=== PATIENT | male | born 1945 | race Two or more races ===

== ENCOUNTER 2019-01-30 08:41 | Emergency (ER) | payer MEDICARE ==
[~2019-01-30] VITALS: Ht 175.3 cm; Wt 92.5 kg
--- NOTE | 2019-01-30 08:50 | NUR ---
PT BIB SELF C/O DIARRHEA, ABDOMINAL CRAMPING SINCE YESTERDAY 4 HRS S/P EATING PIE. PT IS AAOX4, NOT IN RESPIRATORY DISTRESS, HOOKED TO MONITOR, KEPT RESTED AND COMFORTABLE, WILL CONTINUE TO MONITOR.
--- NOTE | 2019-01-30 09:03 | NUR ---
SEEN AND EXAMINED BY .
--- NOTE | 2019-01-30 09:05 | NUR ---
IV LINE ESTABLISHED, BLOOD DRAWN AND SENT TO LAB.
[2019-01-30] MEDS ORDERED: ONDANSETRON HCL/PF 4 MG/2 ML VIAL ONE (09:07)
[2019-01-30] MEDS ORDERED: MORPHINE SULFATE INJ 2 MG/ML DISP.SYRIN ONE (09:08)
[2019-01-30 09:15] LABS: BASOPHILS # (AUTO) 0.1 /CMM (0.0-0.2); BASOPHILS % (AUTO) 1.3 % (0.0-2.0); EOSINOPHILS % (AUTO) 6.7 % (0.0-6.0); HEMATOCRIT 46 % (39-51); HEMOGLOBIN 15.4 g/dL (13.5-17.5); LYMPHOCYTES # (AUTO) 1.5 /CMM (0.8-4.8); LYMPHOCYTES % (AUTO) 28.4 % (20.0-44.0); MEAN CORPUSCULAR HGB CONC 34 g/dl (31.0-36.0); MEAN CORPUSCULAR VOLUME 95 fL (80-96); MONOCYTES # (AUTO) 0.2 /CMM (0.1-1.30); MONOCYTES % (AUTO) 4.7 % (2.0-12.0); NEUTROPHILS # (AUTO) 3.1 /CMM (1.8-8.9); NEUTROPHILS % (AUTO) 58.9 % (43.0-81.0); PLATELET COUNT (AUTO) 208 /CMM (150-450); RED BLOOD CELL COUNT(AUTO) 4.87 MIL/uL (4.5-6.0); WHITE BLOOD COUNT (AUTO) 5.2 K/uL (4.3-11.0)
--- NOTE | 2019-01-30 09:19 | NUR ---
PT IS WHEELED TO CT SCAN VIA [facility].
[2019-01-30 09:20] LABS: CALCIUM, SERUM 9.4 mg/dL (8.5-10.1); CARBON DIOXIDE 30 mmol/L (21-32); CHLORIDE 107 mmol/L (98-107); GLUCOSE 113 mg/dL (74-106); SODIUM SERUM 142 mmol/L (136-145); UREA NITROGEN, BLOOD 6 mg/dL (7-18)
[2019-01-30 09:25] LABS: APPEARANCE,URINE Clear (CLEAR); BILIRUBIN,URINE Negative (NEGATIVE); BLOOD, URINE Negative Ery/uL (NEGATIVE); COLOR,URINE Yellow (YELLOW); KETONES,URINE Negative (NEGATIVE); LEUKOCYTE ESTERASE ,URINE Negative (NEGATIVE); NITRITE, URINE Negative (NEGATIVE); PROTEIN,URINE Negative (NEGATIVE); UGLUCOSE Negative (NEGATIVE); UROBILINOGEN,URINE 0.2 EU/dL (0.2)
[2019-01-30 09:26] LABS: ALANINE AMINOTRANSFERASE 14 U/L (12-78); ALBUMIN 3.8 g/dL (3.4-5.0); ALKALINE PHOSPHATASE 98 U/L (46-116); ASPARTATE AMINOTRANSFERASE 17 U/L (15-37); BILIRUBIN,DIRECT 0.1 mg/dL (0.0-0.2); BILIRUBIN,TOTAL 0.6 mg/dL (0.2-1.0); LIPASE 76 U/L (73-393)
[2019-01-30] MEDS ORDERED: MORPHINE SULFATE INJ 2 MG/ML DISP.SYRIN IV ONE (09:30)
[2019-01-30] MEDS ORDERED: ONDANSETRON HCL/PF 4 MG/2 ML VIAL IVP ONE (09:30)
[2019-01-30] MEDS ORDERED: IV NS 0.9% 1,000 ML BAG IV ONE (09:30)
--- NOTE | 2019-01-30 10:16 | NUR ---
called Sandra Penn DO [phone] [facility]
[2019-01-30] MEDS ORDERED: APIXABAN 5 MG TABLET PO ONE (10:30)
--- NOTE | 2019-01-30 12:11 | NUR ---
IV removed. Catheter intact and site benign. Pressure and 4x4 applied to site. No bleeding noted. Patient discharged to home in stable condition. Written and verbal after care instructions given. Patient verbalizes understanding of instruction.
[2019-01-30 12:12] VITALS: BP 134/71
== END 2019-01-30 12:19 | disposition home or self-care (01) ==
LOC: ER 08:44
DX: R10.30 Lower abdominal pain, unspecified (principal); R19.7 Diarrhea, unspecified; I48.91 Unspecified atrial fibrillation; R11.10 Vomiting, unspecified; I45.10 Unspecified right bundle-branch block; I44.4 Left anterior fascicular block
CPT/HCPCS: 36415; 74176; 80048; 80076; 81001; 83605; 83690; 84484; 85025; 85610; 85730; 87045; 93005; 96361; 96374; 96375; 99284; J2270; J2405; J7030; 81000-TC

== ENCOUNTER 2019-06-18 03:28 | Emergency (ER) | payer MEDICARE ==
[~2019-06-18] VITALS: Ht 175.3 cm; Wt 81.6 kg
--- NOTE | 2019-06-18 03:39 | NUR ---
PT ALEJO C/O R SHOULDER PAIN, AT BEDSIDE FOR EVAL. WILL CONTINUE TO MONITOR.
--- NOTE | 2019-06-18 03:40 | NUR ---
SEEN AND EXAMINED BY .
--- NOTE | 2019-06-18 04:30 | NUR ---
ELECTRO MECHANIC AT BEDSIDE FOR XRAY.
[2019-06-18] MEDS ORDERED: oxyCODONE/APAP (5/325 MG) 1 UDTAB TABLET PO ONE (05:00)
[2019-06-18] MEDS ORDERED: oxyCODONE/APAP (5/325 MG) 1 UDTAB TABLET ONE (05:08)
--- NOTE | 2019-06-18 05:20 | NUR ---
Patient discharged to home in stable condition. Written and verbal after care instructions given. Patient verbalizes understanding of instruction and RX. VSS. Pt denies pain, ambulated with steady gait.
[2019-06-18 05:22] VITALS: BP 128/73
== END 2019-06-18 05:22 | disposition home or self-care (01) ==
LOC: ER 03:31
DX: M77.9 Enthesopathy, unspecified (principal); Z60.2 Problems related to living alone
CPT/HCPCS: 73030-TC

== ENCOUNTER 2020-04-13 17:10 | Emergency (ER) | payer MEDICARE ==
[~2020-04-13] VITALS: Ht 172.7 cm; Wt 77.1 kg
[2020-04-13 17:19] VITALS: BP 135/73
[2020-04-13] MEDS ORDERED: LIDOCAINE VISCOUS 2% UD 15 ML UDC ONE (17:30)
[2020-04-13] MEDS ORDERED: MAG HYDROX/AL HYDROX/SIMETH 30 ML UDC PO ONE (17:30)
[2020-04-13] MEDS ORDERED: MAG HYDROX/AL HYDROX/SIMETH 30 ML UDC ONE (17:30)
[2020-04-13] MEDS ORDERED: LIDOCAINE VISCOUS 2% UD 15 ML UDC MM ONE (17:30)
[2020-04-13] MEDS ORDERED: OMEP40CA13 PO (17:34)
--- NOTE | 2020-04-13 18:03 | NUR ---
Patient discharged to home in stable condition. Written and verbal after care instructions given. Patient verbalizes understanding of instruction.
== END 2020-04-13 18:02 | disposition home or self-care (01) ==
LOC: ER 17:13
DX: K20.90 Esophagitis, unspecified without bleeding (principal); R11.2 Nausea with vomiting, unspecified; I10 Essential (primary) hypertension; I48.91 Unspecified atrial fibrillation

== ENCOUNTER 2020-12-29 01:32 | Emergency (ER) | payer MEDICARE ==
[~2020-12-29] VITALS: Ht 175.3 cm; Wt 70.3 kg
[~2020-12-29 01:32] MED LIST: OMEP40CA21 PO
--- NOTE | 2020-12-29 02:05 | NUR ---
PATIENT BIBS C/O MIDCHEST PAIN RADIATING DOWN MID ABDOMEN SINCE 9PM. PATIENT IS A/O X 4, RR EVEN AND UNLABORED, NO SOB NOTED. PATIENT CONNECTED TO CNC MACHINIST 2ND SHIFT AND POX.
--- NOTE | 2020-12-29 02:20 | NUR ---
US AT BEDSIDE
[2020-12-29] MEDS ORDERED: PANTOPRAZOLE 40 MG VIAL IV ONE (02:30)
[2020-12-29] MEDS ORDERED: PANTOPRAZOLE 40 MG VIAL ONE (02:32)
[2020-12-29 02:58] LABS: BASOPHILS # (AUTO) 0.1 K/uL (0.0-0.2); BASOPHILS % (AUTO) 0.9 % (0.0-2.0); HEMATOCRIT 46 % (39-51); HEMOGLOBIN 15.5 g/dL (13.5-17.5); LYMPHOCYTES # (AUTO) 0.9 K/uL (0.8-4.8); LYMPHOCYTES % (AUTO) 13.7 % (20.0-44.0); MEAN CORPUSCULAR HGB CONC 34 g/dl (31.0-36.0); MEAN CORPUSCULAR VOLUME 96 fL (80-96); MONOCYTES # (AUTO) 0.2 K/uL (0.1-1.30); MONOCYTES % (AUTO) 3.2 % (2.0-12.0); NEUTROPHILS # (AUTO) 5.1 K/uL (1.8-8.9); NEUTROPHILS % (AUTO) 81.2 % (43.0-81.0); PLATELET COUNT (AUTO) 218 K/uL (150-450); RED BLOOD CELL COUNT(AUTO) 4.81 MIL/uL (4.5-6.0); WHITE BLOOD COUNT (AUTO) 6.3 K/uL (4.3-11.0)
[2020-12-29 03:42] LABS: CALCIUM, SERUM 8.5 mg/dL (8.5-10.1); CARBON DIOXIDE 30 mmol/L (21-32); CHLORIDE 104 mmol/L (98-107); CREATININE 1.1 mg/dL (0.6-1.3); GLUCOSE 133 mg/dL (74-106); POTASSIUM 3.6 mmol/L (3.5-5.1); SODIUM SERUM 142 mmol/L (136-145); UREA NITROGEN, BLOOD 16 mg/dL (7-18)
[2020-12-29 03:50] LABS: ALANINE AMINOTRANSFERASE 16 U/L (12-78); ALKALINE PHOSPHATASE 96 U/L (46-116); ASPARTATE AMINOTRANSFERASE 15 U/L (15-37); BILIRUBIN,DIRECT 0.2 mg/dL (0.0-0.2); BILIRUBIN,TOTAL 0.6 mg/dL (0.2-1.0); LIPASE 81 U/L (73-393); TOTAL PROTEIN, SERUM 8.3 g/dL (6.4-8.2)
--- NOTE | 2020-12-29 04:02 | NUR ---
FOLLOWED UP WITH ELVIN REGARDING IMAGING RESULT
[2020-12-29] MEDS ORDERED: OMEP20CA15 PO (05:06)
--- NOTE | 2020-12-29 05:07 | NUR ---
Patient discharged to home in stable condition. Written and verbal after care instructions given. Patient verbalizes understanding of instruction.
[2020-12-29 05:08] VITALS: BP 135/77
== END 2020-12-29 05:09 | disposition home or self-care (01) ==
LOC: ER 01:34
DX: R10.13 Epigastric pain (principal); I48.91 Unspecified atrial fibrillation; I10 Essential (primary) hypertension; Z60.2 Problems related to living alone; Z79.899 Other long term (current) drug therapy
CPT/HCPCS: 36415; 71045; 76705; 80048; 80076; 83690; 84484; 85025; 93005; 96374; 99285; C9113

== ENCOUNTER 2021-03-22 13:51 | Emergency (ER) | payer MEDICARE ==
[~2021-03-22] VITALS: Ht 175.3 cm; Wt 81.6 kg
[~2021-03-22 13:51] MED LIST changes: +OMEP20CA15 PO
[2021-03-22] MEDS ORDERED: LIDOCAINE 2% JEL UROJET 10 ML MM ONE (14:30)
[2021-03-22 16:19] LABS: BASOPHILS % (AUTO) 0.6 % (0.0-2.0); EOSINOPHILS % (AUTO) 0.2 % (0.0-6.0); HEMATOCRIT 47 % (39-51); HEMOGLOBIN 15.5 g/dL (13.5-17.5); LYMPHOCYTES # (AUTO) 0.9 K/uL (0.8-4.8); LYMPHOCYTES % (AUTO) 12.5 % (20.0-44.0); MEAN CORPUSCULAR HGB CONC 33 g/dl (31.0-36.0); MEAN CORPUSCULAR VOLUME 96 fL (80-96); MONOCYTES # (AUTO) 0.5 K/uL (0.1-1.30); MONOCYTES % (AUTO) 6.8 % (2.0-12.0); NEUTROPHILS # (AUTO) 5.6 K/uL (1.8-8.9); NEUTROPHILS % (AUTO) 79.9 % (43.0-81.0); PLATELET COUNT (AUTO) 180 K/uL (150-450); RED BLOOD CELL COUNT(AUTO) 4.93 MIL/uL (4.5-6.0)
[2021-03-22 16:36] LABS: CALCIUM, SERUM 9.2 mg/dL (8.5-10.1); CREATININE 1.3 mg/dL (0.6-1.3); POTASSIUM 3.8 mmol/L (3.5-5.1)
[2021-03-22 18:28] LABS: BILIRUBIN,URINE NEGATIVE (NEGATIVE); COLOR,URINE DARK YELLOW (YELLOW); LEUKOCYTE ESTERASE ,URINE LARGE (NEGATIVE); NITRITE, URINE POSITIVE (NEGATIVE); PH,URINE 8.5 (5.0-8.0); PROTEIN,URINE 100 mg/dl (NEGATIVE); UGLUCOSE NEGATIVE (NEGATIVE)
--- NOTE | 2021-03-22 18:38 | NUR ---
BS 74; FANY ALDANA NOTIFIED
[2021-03-22 18:55] LABS: RBC,URINE 81-100 /HPF (0-2)
[2021-03-22 18:56] LABS: BACTERIA,URINE Many /HPF (None Seen); SQUAMOUS EPITHELIAL CELL,UR Few /HPF (None Seen)
[2021-03-22 18:57] LABS: URINE AMORPHOUS PHOSPHATES Many /HPF (None Seen)
[2021-03-22] MEDS ORDERED: CEPH500C2 PO (19:10)
[2021-03-22] MEDS ORDERED: CEPHALEXIN MONOHYDRATE 500 MG CAPSULE PO ONE ×2 (19:14→19:30)
--- NOTE | 2021-03-22 19:15 | NUR ---
BIBS C/O URINE RETENTION AND "PRESSURE" SINCE YESTERDAY. BREATHING EVEN AND UNLABORED AND ALL V/S STABLE
--- NOTE | 2021-03-22 19:31 | NUR ---
Patient discharged to home in stable condition. Written and verbal after care instructions given. Patient verbalizes understanding of instruction.
[2021-03-22 19:42] VITALS: BP 136/83
[2021-03-25] MEDS ORDERED: PANTOPRAZOLE 40 MG TABLET.DR PO ONE (09:13)
[2021-03-27] MEDS ORDERED: TAMS-12 PO (11:22)
[2021-03-27] MEDS ORDERED: AMOX1TAB16 PO (11:22)
[2021-03-27] MEDS ORDERED: Tamsulosin PO (11:22)
== END 2021-03-22 19:42 | disposition home or self-care (01) ==
LOC: ER 13:52
DX: R33.9 Retention of urine, unspecified (principal); I10 Essential (primary) hypertension; I48.91 Unspecified atrial fibrillation; Z60.2 Problems related to living alone; Z79.899 Other long term (current) drug therapy
CPT/HCPCS: 51702; 99284; J3490; 36415; 80048-TC; 81001; 82962-TC; 85025-TC; 87086-TC; 87186-TC

== ENCOUNTER 2021-03-24 02:17 | Emergency (ER) | payer MEDICARE ==
[~2021-03-24] VITALS: Ht 175.3 cm; Wt 81.6 kg
[~2021-03-24 02:17] MED LIST changes: +CEPH500C2 PO
--- NOTE | 2021-03-24 03:17 | NUR ---
BIBS. TO ER BED 4. AAOX4. NOT IN RESP DISTRESS. AMBULATORY. CAME IN FOR PAIN UPON URINATION. SINCE YESTERDAY. 12/16 PRESSURE. ON AT [facility] FOR 1 DAYS. AWAITING MD FOR EVAL
[2021-03-24] MEDS ORDERED: IV NS 0.9% 500 ML BAG IV ONE ×2 (04:00→05:30)
[2021-03-24] MEDS: MORPHINE SULFATE INJ 2 MG/ML DISP.SYRIN IV ONE ×2 (04:00→04:28)
[2021-03-24] MEDS ORDERED: MORPHINE SULFATE INJ 4 MG/ML DISP.SYRIN ONE ×2 (04:08→05:29)
[2021-03-24] MEDS ORDERED: LIDOCAINE 2% JEL UROJET 10 ML MM ONE (04:08)
[2021-03-24] MEDS ORDERED: CEFTRIAXONE 1GM BAG (ER ONLY) 1 GM/50 ML PIGGYBACK IV ONE (04:30)
[2021-03-24] MEDS ORDERED: CEFTRIAXONE 1GM BAG (ER ONLY) 50 ML IV ONE (04:33)
[2021-03-24 04:44] LABS: BASOPHILS % (AUTO) 0.7 % (0.0-2.0); EOSINOPHILS % (AUTO) 0.9 % (0.0-6.0); HEMATOCRIT 48 % (39-51); HEMOGLOBIN 15.9 g/dL (13.5-17.5); LYMPHOCYTES # (AUTO) 1.2 K/uL (0.8-4.8); LYMPHOCYTES % (AUTO) 22.1 % (20.0-44.0); MEAN CORPUSCULAR HGB CONC 33 g/dl (31.0-36.0); MEAN CORPUSCULAR VOLUME 96 fL (80-96); MONOCYTES # (AUTO) 0.4 K/uL (0.1-1.30); MONOCYTES % (AUTO) 7.9 % (2.0-12.0); NEUTROPHILS # (AUTO) 3.7 K/uL (1.8-8.9); NEUTROPHILS % (AUTO) 68.4 % (43.0-81.0); PLATELET COUNT (AUTO) 197 K/uL (150-450); RED BLOOD CELL COUNT(AUTO) 5.02 MIL/uL (4.5-6.0); WHITE BLOOD COUNT (AUTO) 5.4 K/uL (4.3-11.0)
[2021-03-24 04:46] LABS: BILIRUBIN,URINE SMALL (NEGATIVE); COLOR,URINE YELLOW (YELLOW); LEUKOCYTE ESTERASE ,URINE NEGATIVE (NEGATIVE); NITRITE, URINE NEGATIVE (NEGATIVE); PROTEIN,URINE >=300 mg/dl (NEGATIVE); UGLUCOSE NEGATIVE (NEGATIVE)
--- NOTE | 2021-03-24 04:48 | NUR ---
FLUSHED WITH 150ML NS WITHOUT ANY RESISTANCE AND CLEAR RETURN WITHOUT CLOTS. MAD MADE AWARE. GIVEN NEW LEG BAG
[2021-03-24 04:52] LABS: CALCIUM, SERUM 8.9 mg/dL (8.5-10.1); CARBON DIOXIDE 27 mmol/L (21-32); CHLORIDE 100 mmol/L (98-107); CREATININE 1.4 mg/dL (0.6-1.3); GLUCOSE 92 mg/dL (74-106); POTASSIUM 3.7 mmol/L (3.5-5.1); SODIUM SERUM 138 mmol/L (136-145); UREA NITROGEN, BLOOD 25 mg/dL (7-18)
[2021-03-24] MEDS ORDERED: MORPHINE SULFATE INJ 2 MG/ML DISP.SYRIN IV ONE ×2 (05:30→06:00)
[2021-03-24 05:45] VITALS: BP 103/60
[2021-03-24] MEDS ORDERED: PHEN-894 PO (05:59)
[2021-03-24 06:28] LABS: BACTERIA,URINE None seen /HPF (None Seen); RBC,URINE TOO NUMEROUS TO COUN /HPF (0-2)
[2021-03-24 06:29] LABS: SQUAMOUS EPITHELIAL CELL,UR None Seen /HPF (None Seen)
--- NOTE | 2021-03-24 07:41 | NUR ---
Patient discharged to home in stable condition. Written and verbal after care instructions given. Patient verbalizes understanding of instruction.
[2021-03-25] MEDS ORDERED: NIFE-35 PO (07:39)
[2021-03-25] MEDS ORDERED: BENA20TA9 PO (07:39)
[2021-03-25] MEDS ORDERED: AMLO-213 PO (07:39)
[2021-03-25] MEDS ORDERED: CARV12.52 PO (07:39)
[2021-03-27] MEDS ORDERED: Tamsulosin PO (11:22)
[2021-03-27] MEDS ORDERED: AMOX1TAB16 PO (11:22)
[2021-03-27] MEDS ORDERED: TAMS-12 PO (11:22)
== END 2021-03-24 07:42 | disposition home or self-care (01) ==
LOC: ER 02:20
DX: N39.0 Urinary tract infection, site not specified (principal); R33.9 Retention of urine, unspecified; I10 Essential (primary) hypertension; I48.91 Unspecified atrial fibrillation; Z60.2 Problems related to living alone; Z79.899 Other long term (current) drug therapy
CPT/HCPCS: 36415; 80048; 81001; 85025; 96365; 96375; 99284; J0696; J2270 ×2; J3490; J7040 ×2

== ENCOUNTER 2021-03-25 02:34 | Inpatient (IN) | payer MEDICARE ==
[~2021-03-25] VITALS: Ht 175.3 cm; Wt 81.7 kg
[~2021-03-25 02:34] MED LIST changes: +PHEN-894 PO
[2021-03-25] MEDS ORDERED: MORPHINE SULFATE INJ 2 MG/ML DISP.SYRIN IM ONE (03:00)
[2021-03-25] MEDS ORDERED: MORPHINE SULFATE INJ 4 MG/ML DISP.SYRIN ONE (03:07)
[2021-03-25] MEDS ORDERED: MORPHINE SULFATE INJ 2 MG/ML DISP.SYRIN ONE (03:07)
[2021-03-25] MEDS ORDERED: PHENAZOPYRIDINE HCL 200 MG TABLET ONE (04:06)
[2021-03-25] MEDS ORDERED: PHENAZOPYRIDINE HCL 200 MG TABLET PO ONE (04:30)
[2021-03-25] MEDS ORDERED: IV NS 0.9% 500 ML BAG IV ONE (05:30)
[2021-03-25] MEDS ORDERED: CEFTRIAXONE 1GM BAG (ER ONLY) 1 GM/50 ML PIGGYBACK IV ONE (05:30)
[2021-03-25] MEDS ORDERED: ONDANSETRON HCL/PF 4 MG/2 ML VIAL IVP PRN (06:00)
[2021-03-25] MEDS ORDERED: IV NS 0.9% 1,000 ML IV PRN (06:00)
[2021-03-25] MEDS ORDERED: Z GUARD REMEDY 4 OZ OINT TP PRN (06:00)
[2021-03-25] MEDS ORDERED: ACETAMINOPHEN 325 MG TABLET PO PRN (06:00)
[2021-03-25] MEDS ORDERED: MAGNESIUM HYDROXIDE 30 ML UDC PO PRN (06:00)
[2021-03-25] MEDS ORDERED: MORPHINE SULFATE INJ 2 MG/ML DISP.SYRIN IV PRN (06:00)
[2021-03-25] MEDS ORDERED: MAG HYDROX/AL HYDROX/SIMETH 30 ML UDC PO PRN (06:00)
[2021-03-25] MEDS ORDERED: CEFTRIAXONE 1GM BAG (ER ONLY) 50 ML IV ONE (06:21)
[2021-03-25] MEDS ORDERED: LEVOFLOXACIN 750 MG /D5W 150ML 750 MG in PREMIX 1 EA IV ONE (06:30)
--- NOTE | 2021-03-25 06:44 | NUR ---
MRSA SWAB COLLECTED AND SENT TO LAB. PATIENT'S BELONGINGS LIST DONE.
[2021-03-25 07:34] LABS: CALCIUM, SERUM 8.3 mg/dL (8.5-10.1); POTASSIUM 4.2 mmol/L (3.5-5.1)
[2021-03-25] MEDS ORDERED: AMLO-213 PO (07:39)
[2021-03-25] MEDS ORDERED: BENA20TA9 PO (07:39)
[2021-03-25] MEDS ORDERED: CARV12.52 PO (07:39)
[2021-03-25] MEDS ORDERED: NIFE-35 PO (07:39)
[2021-03-25 07:46] LABS: BASOPHILS % (AUTO) 0.6 % (0.0-2.0); EOSINOPHILS % (AUTO) 1.7 % (0.0-6.0); HEMATOCRIT 44 % (39-51); HEMOGLOBIN 14.4 g/dL (13.5-17.5); LYMPHOCYTES # (AUTO) 0.9 K/uL (0.8-4.8); LYMPHOCYTES % (AUTO) 23.2 % (20.0-44.0); MEAN CORPUSCULAR HGB CONC 33 g/dl (31.0-36.0); MEAN CORPUSCULAR VOLUME 96 fL (80-96); MONOCYTES # (AUTO) 0.3 K/uL (0.1-1.30); MONOCYTES % (AUTO) 7.4 % (2.0-12.0); NEUTROPHILS # (AUTO) 2.6 K/uL (1.8-8.9); NEUTROPHILS % (AUTO) 67.1 % (43.0-81.0); PLATELET COUNT (AUTO) 178 K/uL (150-450); RED BLOOD CELL COUNT(AUTO) 4.55 MIL/uL (4.5-6.0); WHITE BLOOD COUNT (AUTO) 3.9 K/uL (4.3-11.0)
--- NOTE | 2021-03-25 08:02 | NUR ---
PATIENT PROVIDED W BREAKFAST TRAY. TOLERATED PO WELL.
--- NOTE | 2021-03-25 08:40 | NUR ---
PATIENT'S OLD DOWNING CATHETER HAS BEEN DISLODGED. WILL CHANGE TO A NEW ONE.
[2021-03-25] MEDS: PANTOPRAZOLE 40 MG TABLET.DR PO SCH (09:20)
[2021-03-25] MEDS: PIPERACILLIN /TAZOBACTAM 4.5 G in IV D5W 50 ML IV SCH ×3 (09:44→20:37)
[2021-03-25] MEDS: TAMSULOSIN 0.4 MG CAP.SR.24H PO SCH ×2 (11:00→20:37)
--- NOTE | 2021-03-25 11:17 | NUR ---
ROOM 320-1
--- NOTE | 2021-03-25 11:21 | NUR ---
REPORT GIVEN TO MALVIN LANDAVERDE OF [facility] UNIT
--- NOTE | 2021-03-25 11:29 | NUR ---
URINE SAMPLE COLLECTED FROM DOWNING CATHETER AND SENT TO LAB
[2021-03-25 11:36] LABS: ALBUMIN 3.1 g/dL (3.4-5.0); BILIRUBIN,DIRECT 0.2 mg/dL (0.0-0.2); BILIRUBIN,TOTAL 0.5 mg/dL (0.2-1.0); TOTAL PROTEIN, SERUM 7.2 g/dL (6.4-8.2)
[2021-03-25 11:40] VITALS: BP 107/68
[2021-03-25 12:12] LABS: BILIRUBIN,URINE NEGATIVE (NEGATIVE); COLOR,URINE AMBER (YELLOW); LEUKOCYTE ESTERASE ,URINE TRACE (NEGATIVE); NITRITE, URINE POSITIVE (NEGATIVE); PROTEIN,URINE >=300 mg/dl (NEGATIVE); UGLUCOSE NEGATIVE (NEGATIVE)
[2021-03-25] MEDS: IV NS 0.9% 1,000 ML IV SCH ×3 (12:45→20:37)
--- NOTE | 2021-03-25 13:00 | NUR ---
RN ADMITTING NOTES PT ADMITTED TO UNIT VIA [facility] AT 1140 ACCOMPANIED BY 2 E[employer]. TRANSPORTER. PT ABLE TO WALK AND TRANSFER HIMSELF FROM [place] TO BED. PT IS A/O X4, ABLE TO MAKE NEEDS KNOWN, DENIES PAIN AT THIS TIME. PT WITH DX OF ACUTE PROSTATITIS. HE WAS ORIENTED TO STAFF AND UNIT. V/S TAKEN, STABLE AND RECORDED. ON ROOM AIR, TOLERATING WELL WITH NO ACUTE RESPIRATORY DISTRESS NOTED. PT WITH IV ACCESS ON LAC G#18 INTACT AND PATENT, IVF OF NS @200 ML/HR STARTED ORDERED. SKIN IS INTACT WITH NO SKIN IMPAIRMENTS NOTED. LUNGS CLEAR ON AUSCULTATION BILATERALLY. ABDOMEN SOFT, NON-TENDER AND NON DISTENDED WITH BOWEL SOUNDS PRESENT ON FOUR QUADRANTS. PT WITH DOWNING CATHETER IN PLACE DRAINING CLEAR YELLOWISH URINE OUTPUT VIA GRAVITY. SAFETY MEASURES INITIATED: BED PLACED IN LOWEST LOCKED POSITION WITH SR-UP X2. CALL LIGHT AND BEDSIDE TABLE PLACED W/IN EASY REACH OF PT. WILL CONTINUE TO MONITOR.
[2021-03-25 13:03] LABS: BACTERIA,URINE None seen /HPF (None Seen); SQUAMOUS EPITHELIAL CELL,UR Rare /HPF (None Seen); WBC,URINE 0-2 /HPF (0-3)
[2021-03-25 13:04] LABS: RBC,URINE TOO NUMEROUS TO COUN /HPF (0-2)
[2021-03-25 14:00] VITALS: BP 107/68
[2021-03-25] MEDS: CARVEDILOL 12.5 MG TABLET PO SCH (16:30)
--- NOTE | 2021-03-25 18:41 | NUR ---
MS RN CLOSING NOTES PT IN BED WATCHING TV AT THIS TIME. A/O X4, ABLE TO MAKE NEEDS KNOWN. ON ROOM AIR, TOLERATING WELL WITH NO ACUTE RESPIRATORY DISTRESS NOTED. IV ACCESS ON LAC G#18 INTACT WITH IVF OF NS @200 ML/HR INFUSING WELL, NO S/S OF INFILTRATIONS AT SITE NOTED. DOWNING CATHETER IN PLACE DRAINING CLEAR YELLOWISH URINE OUTPUT VIA GRAVITY, DOWNING CARE DONE. ALL NEEDS AND CARE ATTENDED WELL. SAFETY MEASURES MAINTAINED: BED IN LOWEST LOCKED POSITION WITH SR-UP X2. CALL LIGHT AND BEDSIDE TABLE PLACED W/IN EASY REACH OF PT. WILL ENDORSE SAMANTHA TO STRAW BOSS NURSE.
--- NOTE | 2021-03-25 19:49 | NUR ---
RN OPENING NOTES RECEIVED PT IN BED, AWAKE. AOx4, ABLE TO MAKE NEEDS KNOWN. ON RA AND TOLERATING WELL. NO SOB NOTED. NO S/SX OF RESPIRATORY DISTRESS NOTED. IV ACCESS IN LAC #18 RUNNING NS @ 200 ML/HR. SAFETY PRECAUTIONS IN PLACE: BED IN LOWEST, LOCKED POSITION, BRAKES ON, AND SIDERAILS UPx2. TABLE AND CALL LIGHT WITHIN REACH. WILL CONTINUE TO MONITOR.
--- NOTE | 2021-03-26 00:55 | NUR ---
ADMINISTERED MORPHINE PER MD ORDER. VS WNL. WILL CONTINUE TO MONITOR.
--- NOTE | 2021-03-26 01:51 | NUR ---
PATIENT SCREAMING IN PAIN. STATING "PENIS HURTS WHEN HE URINATES". PATIENT ALSO STATES "HE WANTS TO AND KEEPS ASKING STAFF TO "HELP HIM ." CONTACTED DOCTOR MONTEZ FOR AGITATION AND PAIN. ORDERED ATIVAN 1 MG ONCE IV AND DILAUDID 1 MG IV Q4HRS. WILL CONTINUE TO MONITOR.
[2021-03-26] MEDS ORDERED: HYDROMORPHONE 1 MG/1 ML DISP.SYRIN IV PRN (02:00)
[2021-03-26] MEDS ORDERED: LORAZEPAM INJ 2 MG/ML VIAL IV ONE (02:00)
--- NOTE | 2021-03-26 02:02 | NUR ---
ADMINISTERED ATIVAN FOR AGITATION PER MD ORDER. VS WNL. WILL CONTINUE TO MONITOR.
[2021-03-26] MEDS: PIPERACILLIN /TAZOBACTAM 4.5 G in IV D5W 50 ML IV SCH ×4 (03:08→21:54)
[2021-03-26] MEDS: IV NS 0.9% 1,000 ML IV SCH ×2 (03:09→10:11)
--- NOTE | 2021-03-26 03:10 | NUR ---
ADMINISTERD DILAUDID FOR UNRESOLVED PAIN. VS WNL. WILL CONTINUE TO MONITOR.
[2021-03-26] MEDS ORDERED: LEVOFLOXACIN 750 MG /D5W 150ML 750 MG in PREMIX 1 EA IV SCH (06:00)
--- NOTE | 2021-03-26 07:18 | NUR ---
RN OPENING NOTES RECEIVED PT IN BED, AWAKE. AOx4, ABLE TO MAKE NEEDS KNOWN. ON ROOM AIR AND TOLERATING WELL. NO SOB NOTED. NO S/SX OF RESPIRATORY DISTRESS NOTED. IV ACCESS IN LAC #18 WITH IV FLUID OF NS RUNNING AT 200 ML/HR. NO COMPLAINTS OF PAIN AT THIS TIME. SAFETY PRECAUTIONS IN PLACE: BED IN LOWEST, LOCKED POSITION, BRAKES ON, AND SIDERAILS UPx2. TABLE AND CALL LIGHT WITHIN REACH. WILL CONTINUE TO MONITOR PATIENT.
--- NOTE | 2021-03-26 07:31 | NUR ---
RN CLOSING NOTES PT IN BED, AWAKE. AOx4, ABLE TO MAKE NEEDS KNOWN. ON RA AND TOLERATING WELL. NO SOB NOTED. NO S/SX OF RESPIRATORY DISTRESS NOTED. IV ACCESS IN LAC #18 RUNNING NS @ 200 ML/HR. ALL NEEDS MET. PT KEPT CLEAN AND DRY. TREATED PAIN THROUGHOUT SHIFT. SAFETY PRECAUTIONS IN PLACE: BED IN LOWEST, LOCKED POSITION, BRAKES ON, AND SIDERAILS UPx2. TABLE AND CALL LIGHT WITHIN REACH. WILL ENDORSE TO ONCOMING SHIFT FOR SAMANTHA.
[2021-03-26 07:53] LABS: BASOPHILS % (AUTO) 0.6 % (0.0-2.0); EOSINOPHILS % (AUTO) 2.1 % (0.0-6.0); HEMATOCRIT 40 % (39-51); HEMOGLOBIN 13.2 g/dL (13.5-17.5); LYMPHOCYTES # (AUTO) 0.9 K/uL (0.8-4.8); LYMPHOCYTES % (AUTO) 26.6 % (20.0-44.0); MEAN CORPUSCULAR HGB CONC 34 g/dl (31.0-36.0); MEAN CORPUSCULAR VOLUME 95 fL (80-96); MONOCYTES # (AUTO) 0.3 K/uL (0.1-1.30); MONOCYTES % (AUTO) 9.8 % (2.0-12.0); NEUTROPHILS # (AUTO) 2.2 K/uL (1.8-8.9); NEUTROPHILS % (AUTO) 60.9 % (43.0-81.0); PLATELET COUNT (AUTO) 177 K/uL (150-450); RED BLOOD CELL COUNT(AUTO) 4.18 MIL/uL (4.5-6.0); WHITE BLOOD COUNT (AUTO) 3.6 K/uL (4.3-11.0)
[2021-03-26 08:00] VITALS: BP 110/79
[2021-03-26 08:25] LABS: ALBUMIN 2.5 g/dL (3.4-5.0); BILIRUBIN,TOTAL 0.6 mg/dL (0.2-1.0); CALCIUM, SERUM 8.1 mg/dL (8.5-10.1); CREATININE 1.1 mg/dL (0.6-1.3); MAGNESIUM 1.8 mg/dL (1.8-2.4); PHOSPHORUS 3.3 mg/dL (2.5-4.9); POTASSIUM 3.3 mmol/L (3.5-5.1); TOTAL PROTEIN, SERUM 5.9 g/dL (6.4-8.2)
[2021-03-26] MEDS: PANTOPRAZOLE 40 MG TABLET.DR PO SCH (08:34)
[2021-03-26] MEDS: CARVEDILOL 12.5 MG TABLET PO SCH ×2 (08:35→17:45)
[2021-03-26] MEDS: NIFEdipine XL (30MG) 30 MG TAB PO SCH (08:36)
[2021-03-26] MEDS: BENAZEPRIL HCL 20 MG TABLET PO SCH (08:39)
[2021-03-26] MEDS ORDERED: POTASSIUM CHLORIDE 20 MEQ TAB.PRT.SR PO ONE (10:00)
[2021-03-26 16:00] VITALS: BP 103/60
--- NOTE | 2021-03-26 19:00 | NUR ---
RN CLOSING NOTES PT IN BED, AWAKE. AOx4, ABLE TO MAKE NEEDS KNOWN. ON ROOM AIR AND TOLERATING WELL. NO SOB NOTED. NO S/SX OF RESPIRATORY DISTRESS NOTED. IV ACCESS IN LAC #18 WITH IV FLUID OF NS RUNNING AT 200 ML/HR. NO COMPLAINTS OF PAIN AT THIS TIME. SAFETY PRECAUTIONS IN PLACE: BED IN LOWEST, LOCKED POSITION, BRAKES ON, AND SIDERAILS UPx2. TABLE AND CALL LIGHT WITHIN REACH. WILL ENDORSE PATIENT FOR CONTINUITY OF CARE.
--- NOTE | 2021-03-26 19:52 | NUR ---
RN OPENING NOTES RECEIVED PT IN BED, AWAKE. AOx4, ABLE TO MAKE NEEDS KNOWN. ON RA AND TOLERATING WELL. NO SOB NOTED. NO S/SX OF RESPIRATORY DISTRESS NOTED. IV ACCESS IN LAC #18 FINISHING NS @ 200 ML/HR. NO COMPLAINTS OF PAIN AT THIS TIME. SAFETY PRECAUTIONS IN PLACE: BED IN LOWEST, LOCKED POSITION, BRAKES ON, AND SIDERAILS UPx2. TABLE AND CALL LIGHT WITHIN REACH. WILL CONTINUE TO MONITOR.
[2021-03-26 20:00] VITALS: BP 129/64
[2021-03-26] MEDS: TAMSULOSIN 0.4 MG CAP.SR.24H PO SCH (21:54)
[2021-03-27] MEDS: PIPERACILLIN /TAZOBACTAM 4.5 G in IV D5W 50 ML IV SCH ×2 (03:10→08:32)
--- NOTE | 2021-03-27 07:09 | NUR ---
RN CLOSING NOTES PT IN BED, AWAKE. AOx4, ABLE TO MAKE NEEDS KNOWN. ON RA AND TOLERATING WELL. NO SOB NOTED. NO S/SX OF RESPIRATORY DISTRESS NOTED. IV ACCESS IN LAC #18. IV IS INTACT, PATENT, AND FLUSHING WELL. ALL NEEDS MET. PT KEPT CLEAN AND DRY. NO COMPLAINTS OF PAIN THROUGHOUT SHIFT. SAFETY PRECAUTIONS IN PLACE: BED IN LOWEST, LOCKED POSITION, BRAKES ON, AND SIDERAILS UPx2. TABLE AND CALL LIGHT WITHIN REACH. WILL ENDORSE TO ONCOMING SHIFT FOR SAMANTHA.
[2021-03-27 07:17] LABS: ALBUMIN 2.7 g/dL (3.4-5.0); BILIRUBIN,TOTAL 0.6 mg/dL (0.2-1.0); CALCIUM, SERUM 8.7 mg/dL (8.5-10.1); CREATININE 1.1 mg/dL (0.6-1.3); POTASSIUM 3.6 mmol/L (3.5-5.1); TOTAL PROTEIN, SERUM 6.6 g/dL (6.4-8.2)
[2021-03-27] MEDS: PANTOPRAZOLE 40 MG TABLET.DR PO SCH (08:13)
[2021-03-27] MEDS: CARVEDILOL 12.5 MG TABLET PO SCH (08:13)
[2021-03-27] MEDS: NIFEdipine XL (30MG) 30 MG TAB PO SCH (08:14)
[2021-03-27] MEDS: BENAZEPRIL HCL 20 MG TABLET PO SCH (08:14)
[2021-03-27 08:18] VITALS: BP 114/72
--- NOTE | 2021-03-27 08:50 | NUR ---
RN NOTES PATIENT ABLE TO TAKE AM MEDS; DOWNING CATH INTACT AND PATENT, DRAINING YELLOW-COLORED URINE.
--- NOTE | 2021-03-27 09:52 | NUR ---
RN NOTES PATIENT SEEN BY DR. GERMAN TODAY; PER , OKAY TO REMOVE DOWNING CATH FOR NOW AND IF PATIENT IS ABLE TO VOID W/O CATH, OK TO GO HOME.
--- NOTE | 2021-03-27 10:12 | NUR ---
RN NOTES DOWNING CATHETER REMOVED, OBTAINED 350CC YELLOW-COLORED URINE. NO COMPLAINT OF PAIN. PROVIDED W/ URINAL AT BEDSIDE AND ENCOURAGED TO DRINK FLUIDS.
[2021-03-27] MEDS ORDERED: TAMS-12 PO (11:22)
[2021-03-27] MEDS ORDERED: AMOX1TAB16 PO (11:22)
[2021-03-27] MEDS ORDERED: Tamsulosin PO (11:22)
--- NOTE | 2021-03-27 11:23 | NUR ---
RN NOTES PATIENT ABLE TO URINATE USING URINAL AT BEDSIDE.
--- NOTE | 2021-03-27 13:27 | NUR ---
RN NOTES PATIENT SEEN BY MD TODAY W/ ORDER FOR DISCHARGE TO HOME; PATIENT ABLE TO URINATE VIA URINAL, NO COMPLAINT OF BLADDER DISTENTION. DISCHARGE INSTRUCTION AND EDUCATION PROVIDED TO PATIENT. DISCHARGE FORM AND BELONGINGS LIST FORM SIGNED BY PATIENT AND ALL BELONGINGS ACCOUNTED FOR. NAME ARMBAND AND IV LINES REMOVED, NO BLEEDING NOTED. NO SKIN ISSUES NOTED. PATIENT IS AMBULATORY W/ STEADY GAIT AND ABLE TO WALK TO THE PARKING LOT TO HIS PRIVATE CAR, ACCOMPANIED BY ME. CHARGE NURSE AND MD AWARE OF DISCHARGE.
[2021-03-27] MEDS ORDERED: AMOX/CLAVULANATE 875 MG TABLET PO SCH (21:00)
== END 2021-03-27 13:20 | disposition home or self-care (01) | DRG 727 ==
LOC: ER 02:35 → TRANSITION 05:53 → TELE 11:19 → MED 12:24
PROVIDERS: ADMIT Internal Medicine; ATTEND Internal Medicine
DX: N41.0 Acute prostatitis (principal); K65.9 Peritonitis, unspecified; N39.0 Urinary tract infection, site not specified; I48.19 Other persistent atrial fibrillation; E87.1 Hypo-osmolality and hyponatremia; I10 Essential (primary) hypertension; I48.91 Unspecified atrial fibrillation; R33.9 Retention of urine, unspecified; K80.20 Calculus of gallbladder without cholecystitis without obstruction; Z20.822 Contact with and (suspected) exposure to COVID-19
CPT/HCPCS: 36415; 80048-TC; 80053-TC; 80076-TC; 81001; 82550-TC; 82962-TC; 83735-TC; 84100-TC; 85025-TC; 87081-TC; 87086-TC; 87186-TC; A4216; G0378; J0696; J1170; J1956; J2060; J2270; J2405; J2543; J7030; J7060

== ENCOUNTER 2023-01-28 12:13 | Emergency (ER) | payer MEDICARE ==
[~2023-01-28] VITALS: Ht 175.3 cm; Wt 64.0 kg
[~2023-01-28 12:13] MED LIST changes: +AMLO-213 PO; +AMOX1TAB16 PO; +BENA20TA9 PO; +CARV12.52 PO; -CEPH500C2 PO; +NIFE-35 PO; -OMEP20CA15 PO; -OMEP40CA21 PO; -PHEN-894 PO; +TAMS-12 PO; +Tamsulosin PO
[2023-01-28 12:28] VITALS: BP 141/78; TEMP 98.4
[2023-01-28] MEDS ORDERED: ERYT3.5O9 EACHEYE (12:41)
[2023-01-28 12:52] VITALS: O2SAT 97
== END 2023-01-28 12:53 | disposition home or self-care (01) ==
LOC: ER 12:17
DX: H10.9 Unspecified conjunctivitis (principal); I10 Essential (primary) hypertension; I48.91 Unspecified atrial fibrillation; Z79.899 Other long term (current) drug therapy; Z60.2 Problems related to living alone

== ENCOUNTER 2024-11-04 06:49 | Inpatient (IN) | payer MEDICARE ==
[~2024-11-04] VITALS: Ht 172.7 cm; Wt 81.6 kg
[~2024-11-04 06:49] MED LIST changes: +ERYT3.5O9 EACHEYE
[2024-11-04] MEDS ORDERED: MORPHINE SULFATE INJ 4 MG/ML DISP.SYRIN ONE (07:37)
[2024-11-04] MEDS ORDERED: ONDANSETRON HCL/PF 4 MG/2 ML VIAL ONE (07:37)
[2024-11-04 07:43] LABS: PLATELET COUNT (AUTO) 203 K/uL (150-450); RED BLOOD CELL COUNT(AUTO) 5.12 MIL/uL (4.5-6.0); RED CELL DISTRIBUTION WIDTH 14.3 % (11.5-15.0); WHITE BLOOD COUNT (AUTO) 7.9 K/uL (4.3-11.0)
[2024-11-04 07:51] LABS: CALCIUM, SERUM 10.6 mg/dL (8.5-10.1); CREATININE 1.6 mg/dL (0.6-1.3); SODIUM SERUM 143.0 mmol/L (136-145); UREA NITROGEN, BLOOD 13.0 mg/dL (7-18)
[2024-11-04] MEDS: IV NS 0.9% 1,000 ML BAG IV ONE (07:52)
[2024-11-04] MEDS: ONDANSETRON HCL/PF - ER 4 MG/2 ML VIAL IV ONE (07:53)
[2024-11-04] MEDS: MORPHINE SULFATE INJ 2 MG/ML DISP.SYRIN IV ONE (07:54)
[2024-11-04 07:57] LABS: ASPARTATE AMINOTRANSFERASE 19.0 U/L (15-37); TOTAL PROTEIN, SERUM 8.6 g/dL (6.4-8.2)
[2024-11-04] MEDS ORDERED: AMLO10TA4 PO (10:46)
[2024-11-04] MEDS ORDERED: NIFE-35 PO (10:46)
[2024-11-04] MEDS ORDERED: AMLO1CAP19 PO (10:46)
[2024-11-04] MEDS ORDERED: ATOR20TA PO (10:46)
[2024-11-04] MEDS ORDERED: CARV12.5 PO (10:46)
[2024-11-04] MEDS ORDERED: ACETAMINOPHEN 325 MG TABLET PO PRN (11:00)
[2024-11-04] MEDS ORDERED: ONDANSETRON HCL/PF 4 MG/2 ML VIAL IVP PRN (11:00)
[2024-11-04] MEDS ORDERED: MORPHINE SULFATE INJ 2 MG/ML DISP.SYRIN IV PRN (11:00)
[2024-11-04] MEDS ORDERED: Z GUARD REMEDY 4 OZ OINT TP PRN (11:00)
[2024-11-04 12:00] VITALS: BP 139/79; TEMP 97.9; O2SAT 100
[2024-11-04 16:10] VITALS: BP 126/76; TEMP 97.3; O2SAT 96
[2024-11-04] MEDS: ENOXAPARIN SODIUM 40 MG/0.4 ML DISP.SYRIN SQ SCH (16:11)
[2024-11-04] MEDS ORDERED: IV LR 1000 ML 1,000 ML BAG IV SCH (19:00)
[2024-11-04] MEDS: IV LR 1000 ML 1,000 ML IV PRN (19:16)
[2024-11-04 20:00] VITALS: BP 131/67; TEMP 98.1; O2SAT 96
[2024-11-05] VITALS: BP 137/81; TEMP 98.1; O2SAT 97
[2024-11-05 04:00] VITALS: BP 112/77; TEMP 97.9; O2SAT 97
[2024-11-05 07:09] LABS: PLATELET COUNT (AUTO) 176 K/uL (150-450); RED BLOOD CELL COUNT(AUTO) 4.42 MIL/uL (4.5-6.0); RED CELL DISTRIBUTION WIDTH 14.3 % (11.5-15.0); WHITE BLOOD COUNT (AUTO) 4.6 K/uL (4.3-11.0)
[2024-11-05 07:38] LABS: ASPARTATE AMINOTRANSFERASE 17.0 U/L (15-37); CALCIUM, SERUM 8.9 mg/dL (8.5-10.1); CREATININE 1.3 mg/dL (0.6-1.3); LDL 47.0 mg/dL (0-99); PHOSPHORUS 3.6 mg/dL (2.5-4.9); SODIUM SERUM 145.0 mmol/L (136-145); TOTAL PROTEIN, SERUM 6.9 g/dL (6.4-8.2); UREA NITROGEN, BLOOD 11.0 mg/dL (7-18)
[2024-11-05 08:00] VITALS: BP 128/79; TEMP 97.9; O2SAT 98
[2024-11-05] MEDS: PANTOPRAZOLE 40 MG VIAL IV SCH (09:00)
[2024-11-05] MEDS ORDERED: DIATR MEGLU/DIATRIZOATE SODIUM 120 ML BOTTLE (GASTROGRAPHIN) ONE ×2 (09:11→12:36)
[2024-11-05 12:00] VITALS: BP 124/87; TEMP 98.2; O2SAT 97
[2024-11-05 16:00] VITALS: BP 124/90; TEMP 98.6; O2SAT 96
[2024-11-05 20:00] VITALS: BP 128/73; TEMP 98.4; O2SAT 98
[2024-11-06] VITALS: BP 121/89; TEMP 97.5; O2SAT 98
[2024-11-06 05:00] VITALS: BP 119/71; TEMP 97.7; O2SAT 96
[2024-11-06 06:50] LABS: PLATELET COUNT (AUTO) 165 K/uL (150-450); RED BLOOD CELL COUNT(AUTO) 4.26 MIL/uL (4.5-6.0); RED CELL DISTRIBUTION WIDTH 14.0 % (11.5-15.0); WHITE BLOOD COUNT (AUTO) 4.6 K/uL (4.3-11.0)
[2024-11-06 07:05] LABS: CALCIUM, SERUM 8.5 mg/dL (8.5-10.1); CREATININE 1.1 mg/dL (0.6-1.3); PHOSPHORUS 3.3 mg/dL (2.5-4.9); SODIUM SERUM 144.0 mmol/L (136-145); UREA NITROGEN, BLOOD 12.0 mg/dL (7-18)
[2024-11-06 08:00] VITALS: BP 127/76; TEMP 98.1; O2SAT 99
[2024-11-06] MEDS: DILTIAZEM HCL CD 240 MG PO SCH (11:15)
[2024-11-06 11:30] VITALS: BP 138/79; TEMP 97.7; O2SAT 99
[2024-11-06 13:22] LABS: APPEARANCE,URINE CLEAR (CLEAR); BLOOD, URINE NEGATIVE Ery/uL (NEGATIVE); LEUKOCYTE ESTERASE ,URINE NEGATIVE (NEGATIVE); NITRITE, URINE NEGATIVE (NEGATIVE); UGLUCOSE NEGATIVE (NEGATIVE)
[2024-11-06 13:28] LABS: ADD URINE CULTURE NO; SQUAMOUS EPITHELIAL CELL,UR None Seen /HPF (None Seen)
[2024-11-06] MEDS ORDERED: APIX5TAB PO (16:17)
== END 2024-11-06 17:38 | disposition home or self-care (01) | DRG 389 ==
LOC: ER 06:55 → TELE 10:02 → MED 16:46 → TELE 19:05
PROVIDERS: ADMIT Nurse Practitioner Acute Care; ATTEND Nurse Practitioner Acute Care
DX: K56.609 Unspecified intestinal obstruction, unspecified as to partial versus complete obstruction (principal); D68.69 Other thrombophilia; N17.9 Acute kidney failure, unspecified; I48.91 Unspecified atrial fibrillation; I10 Essential (primary) hypertension; E78.5 Hyperlipidemia, unspecified; E86.0 Dehydration; E83.52 Hypercalcemia; E80.6 Other disorders of bilirubin metabolism; K20.90 Esophagitis, unspecified without bleeding
CPT/HCPCS: 36415; 71045-TC; 74250-TC; 80048-TC; 80053-TC; 80061-TC; 81001; 83690-TC; 83735-TC; 84100-TC; 84443-TC; 84484-TC; 85025-TC; 85730-TC; 87081-TC; 93307-TC; A4223; G0378; J1650; J2270; J2405; J2470; J7030; J7120; Q9963

== ENCOUNTER 2024-12-07 09:54 | Inpatient (IN) | payer MEDICARE ==
[~2024-12-07] VITALS: Ht 175.3 cm; Wt 87.1 kg
[~2024-12-07 09:54] MED LIST changes: -AMLO-213 PO; +AMLO10TA4 PO; +AMLO1CAP19 PO; -AMOX1TAB16 PO; +APIX5TAB PO; +ATOR20TA PO; -BENA20TA9 PO; +CARV12.5 PO; -CARV12.52 PO; -ERYT3.5O9 EACHEYE; -TAMS-12 PO; -Tamsulosin PO
[2024-12-07 10:32] LABS: PLATELET COUNT (AUTO) 163 K/uL (150-450); RED BLOOD CELL COUNT(AUTO) 4.84 MIL/uL (4.5-6.0); RED CELL DISTRIBUTION WIDTH 14.2 % (11.5-15.0); WHITE BLOOD COUNT (AUTO) 5.7 K/uL (4.3-11.0)
[2024-12-07 10:38] LABS: CALCIUM, SERUM 9.2 mg/dL (8.5-10.1); CREATININE 1.6 mg/dL (0.6-1.3); SODIUM SERUM 138 mmol/L (136-145); UREA NITROGEN, BLOOD 12 mg/dL (7-18)
[2024-12-07 10:44] VITALS: O2SAT 98
[2024-12-07] MEDS ORDERED: MAG HYDROX/AL HYDROX/SIMETH 30 ML UDC ONE (11:02)
[2024-12-07] MEDS ORDERED: LIDOCAINE VISCOUS 2% UD 15 ML UDC ONE (11:02)
[2024-12-07] MEDS ORDERED: FAMOTIDINE/PF INJ 20 MG/2 ML VIAL IV ONE (11:02)
[2024-12-07] MEDS: LIDOCAINE VISCOUS 2% UD 15 ML UDC MM ONE (11:15)
[2024-12-07] MEDS: MAG HYDROX/AL HYDROX/SIMETH 30 ML UDC PO ONE (11:15)
[2024-12-07] MEDS: FAMOTIDINE/PF INJ 20 MG/2 ML VIAL IV ONE (11:17)
[2024-12-07 11:20] LABS: ASPARTATE AMINOTRANSFERASE 22.0 U/L (15-37); TOTAL PROTEIN, SERUM 8.2 g/dL (6.4-8.2)
[2024-12-07 12:00] VITALS: BP 108/84; TEMP 98.2; O2SAT 98
[2024-12-07] MEDS ORDERED: Z GUARD REMEDY 4 OZ OINT TP PRN (12:00)
[2024-12-07] MEDS ORDERED: MAG HYDROX/AL HYDROX/SIMETH 30 ML UDC PO PRN (12:00)
[2024-12-07] MEDS ORDERED: ONDANSETRON HCL/PF 4 MG/2 ML VIAL IVP PRN (12:00)
[2024-12-07] MEDS ORDERED: ACETAMINOPHEN 325 MG TABLET PO PRN (12:00)
[2024-12-07] MEDS ORDERED: MAGNESIUM HYDROXIDE 30 ML UDC PO PRN (12:00)
[2024-12-07 16:00] VITALS: BP 121/84; TEMP 98.2; O2SAT 99
[2024-12-07] MEDS: APIXABAN 5 MG TABLET PO SCH (16:09)
[2024-12-07 20:00] VITALS: BP 118/72; TEMP 97.8; O2SAT 97
[2024-12-07] MEDS: FUROSEMIDE 20 MG/2 ML VIAL IV SCH (20:14)
[2024-12-07] MEDS: ATORVASTATIN 10 MG TABLET PO SCH (22:07)
[2024-12-07] MEDS: APIXABAN 5 MG TABLET PO ONE (23:10)
[2024-12-08] VITALS: BP 111/79; TEMP 98.1; O2SAT 98
[2024-12-08 05:00] VITALS: BP 117/81; TEMP 98.1; O2SAT 99
[2024-12-08 05:53] LABS: PLATELET COUNT (AUTO) 155 K/uL (150-450); RED BLOOD CELL COUNT(AUTO) 4.70 MIL/uL (4.5-6.0); RED CELL DISTRIBUTION WIDTH 14.0 % (11.5-15.0); WHITE BLOOD COUNT (AUTO) 4.2 K/uL (4.3-11.0)
[2024-12-08 06:03] LABS: LDL 51 mg/dL (0-99)
[2024-12-08 06:06] LABS: CALCIUM, SERUM 9.1 mg/dL (8.5-10.1); CREATININE 1.6 mg/dL (0.6-1.3); PHOSPHORUS 4.1 mg/dL (2.5-4.9); SODIUM SERUM 142 mmol/L (136-145); UREA NITROGEN, BLOOD 13 mg/dL (7-18)
[2024-12-08 08:00] VITALS: BP 113/69; TEMP 98.1; O2SAT 100
[2024-12-08] MEDS: AMLODIPINE BESYLATE 10 MG TABLET PO SCH (08:49)
[2024-12-08] MEDS: NIFEdipine XL (30MG) 30 MG TAB PO SCH (08:49)
[2024-12-08] MEDS: CARVEDILOL 12.5 MG TABLET PO SCH ×2 (08:50→16:36)
[2024-12-08] MEDS: APIXABAN 5 MG TABLET PO SCH (08:52)
[2024-12-08] MEDS: IV NS 0.9% 1,000 ML IV PRN (10:09)
[2024-12-08 16:00] VITALS: BP 109/71; TEMP 98.1; O2SAT 98
[2024-12-08 20:56] VITALS: BP 94/69; TEMP 97.9; O2SAT 98
[2024-12-09 00:04] VITALS: BP 107/71; TEMP 98.1; O2SAT 99
[2024-12-09 04:31] VITALS: BP 97/66; TEMP 98.4; O2SAT 99
[2024-12-09 06:01] LABS: PLATELET COUNT (AUTO) 155 K/uL (150-450); RED BLOOD CELL COUNT(AUTO) 4.46 MIL/uL (4.5-6.0); RED CELL DISTRIBUTION WIDTH 14.1 % (11.5-15.0); WHITE BLOOD COUNT (AUTO) 4.5 K/uL (4.3-11.0)
[2024-12-09 06:13] LABS: ASPARTATE AMINOTRANSFERASE 20.0 U/L (15-37); CALCIUM, SERUM 8.6 mg/dL (8.5-10.1); CREATININE 1.9 mg/dL (0.6-1.3); PHOSPHORUS 3.9 mg/dL (2.5-4.9); SODIUM SERUM 143.0 mmol/L (136-145); TOTAL PROTEIN, SERUM 6.7 g/dL (6.4-8.2); UREA NITROGEN, BLOOD 21.0 mg/dL (7-18)
[2024-12-09 08:43] VITALS: BP 108/75; TEMP 98.4; O2SAT 99
[2024-12-09 09:22] LABS: FREE PSA 1.36 ng/mL (0.00-45); PROSTATE SPECIFIC ANTIGEN SCR 16.96 ng/mL (0.00-4.00)
[2024-12-09] MEDS ORDERED: CARV12.52 PO (15:57)
[2024-12-09] MEDS ORDERED: RIVA15TA PO (15:57)
[2024-12-09] MEDS ORDERED: Tamsulosin PO (15:57)
[2024-12-09 16:47] VITALS: BP 100/71
[2024-12-09] MEDS ORDERED: TAMSULOSIN 0.4 MG CAP.SR.24H PO SCH (22:00)
[2024-12-15] MEDS ORDERED: APIXABAN 5 MG TABLET PO SCH (21:00)
== END 2024-12-09 18:31 | disposition home or self-care (01) | DRG 299 ==
LOC: ER 09:59 → TELE 11:44
PROVIDERS: ADMIT Nurse Practitioner Acute Care; ATTEND Nurse Practitioner Acute Care
DX: I82.433 Acute embolism and thrombosis of popliteal vein, bilateral (principal); I50.31 Acute diastolic (congestive) heart failure; J96.01 Acute respiratory failure with hypoxia; N17.0 Acute kidney failure with tubular necrosis; I48.0 Paroxysmal atrial fibrillation; I11.0 Hypertensive heart disease with heart failure; R07.9 Chest pain, unspecified; E78.5 Hyperlipidemia, unspecified; E83.89 Other disorders of mineral metabolism; Z79.01 Long term (current) use of anticoagulants; Z91.198 Patient's noncompliance with other medical treatment and regimen for other reason; Z59.71 Insufficient health insurance coverage
CPT/HCPCS: 36415; 71045-TC; 76770-TC; 80048-TC; 80053-TC; 80061-TC; 80076-TC; 83690-TC; 83735-TC; 84100-TC; 84153-TC; 84154-TC; 84484-TC; 85025-TC; 85378-TC; 93970-TC; A4223; G0378; J1308; J1938; J7030